=== PATIENT | male | born 1970 | race African-American/Black ===

== ENCOUNTER 2016-12-20 17:09 | Emergency (ER) | payer MEDICARE, MEDICAID ==
[~2016-12-20] VITALS: Ht 177.8 cm; Wt 85.0 kg
[2016-12-20] MEDS ORDERED: KETOROLAC 60MG/2ML VIAL IM ONE (19:45)
[2016-12-21] VITALS: BP 147/83
== END 2016-12-21 00:25 | disposition home or self-care (01) ==
LOC: ER 17:38
DX: M79.671 Pain in right foot (principal)
CPT/HCPCS: 73620; 96372; 99284; J1885

== ENCOUNTER 2018-01-10 14:48 | Inpatient (IN) | payer OTHER, MEDICARE ==
[~2018-01-10] VITALS: Ht 182.9 cm; Wt 86.2 kg
[2018-01-10] MEDS ORDERED: VANCOMYCIN 1 G PREMIX 200 ML IV ONE (15:15)
[2018-01-10] MEDS ORDERED: PIPERACILLIN/TAZ 3.375G PREMIX 50 ML IV ONE (15:15)
[2018-01-10 16:13] LABS: BASOPHILS % 0.5 % (0.0-2.0); EOSINOPHILS % 0.6 % (0.0-5.0); HEMOGLOBIN. 10.4 g/dL (14.0-18.0); LYMPHOCYTES % 9.4 % (20.0-50.0); MEAN CORPUSCULAR HEMOGLOBIN 29.5 pg (28.0-32.0); MEAN CORPUSCULAR VOLUME 87.6 fL (80.0-94.0); MEAN PLATELET VOLUME 9.5 fl (7.4-10.4); MONOCYTES % 10.8 % (2.0-8.0); NEUTROPHILS % 78.7 % (40.0-76.0); PLATELET 433 x1000/uL (130-400); RED BLOOD CELL COUNT 3.53 mill/uL (4.7-6.1); RED CELL DISTRIBUTION WIDTH 12.5 % (11.6-14.6)
[2018-01-10] MEDS ORDERED: HYDROCODONE/ACETAMINOPHEN 5/325MG TABLET PO ONE (16:15)
[2018-01-10 16:19] LABS: CHLORIDE 110 mEq/L (98-107)
[2018-01-10] MEDS ORDERED: DOCUSATE SODIUM 100MG CAPSULE PO PRN (17:00)
[2018-01-10] MEDS ORDERED: LORAZEPAM 0.5MG TABLET PO PRN (17:00)
[2018-01-10] MEDS ORDERED: IPRATROPIUM/ALBUTEROL 0.5-3(2.5)MG/3ML NEB INH PRN (17:00)
[2018-01-10] MEDS ORDERED: MAGNESIUM/ALUMINUM HYDROXIDE/SIMETHICONE 30ML UDC PO PRN (17:00)
[2018-01-10] MEDS ORDERED: NITROGLYCERIN 0.4MG TABLET SL SL PRN (17:00)
[2018-01-10] MEDS ORDERED: GUAIFENESIN 200MG/10ML SUGAR FREE UDC PO PRN (17:00)
[2018-01-10] MEDS ORDERED: ACETAMINOPHEN 325MG TABLET PO PRN (17:00)
[2018-01-10] MEDS ORDERED: POTASSIUM CHLORIDE 20MEQ TABLET SR PO NR (18:22)
[2018-01-10] MEDS ORDERED: NA PHOS,M-B/NA PHOS,DI-BA ENEMA 118ML PR PRN (21:00)
[2018-01-10] MEDS: KETOROLAC 15MG/ML VIAL IV PRN (21:14)
[2018-01-10] MEDS ORDERED: ONDANSETRON HCL 4MG/2ML INJ IV PRN (22:50)
[2018-01-10] MEDS ORDERED: DEXTROSE 50% WATER 50ML SYRINGE IV PRN (23:00)
[2018-01-11] VITALS: BP 167/98
[2018-01-11 01:30] VITALS: BP 147/83
[2018-01-11] MEDS ORDERED: VANCOMYCIN 1 G PREMIX 200 ML IV SCH ×2 (02:00→12:00)
[2018-01-11 04:00] VITALS: BP 154/88
[2018-01-11] MEDS: PIPERACILLIN/TAZ 3.375G PREMIX 50 ML IV SCH ×3 (04:07→18:16)
[2018-01-11] MEDS: BLOOD SUGAR DIAGNOSTIC STRIP TEST SCH ×4 (06:34→21:00)
[2018-01-11] MEDS: INSULIN LISPRO 100 UNITS/ML SUBCUT SCH ×4 (07:50→21:00)
[2018-01-11 08:00] VITALS: BP 159/98
[2018-01-11] MEDS: ENOXAPARIN 40MG/0.4ML SYR SUBCUT SCH (09:19)
[2018-01-11] MEDS: ZINC SULFATE 220 MG ( 50 ) CAPSULE PO SCH (09:20)
[2018-01-11] MEDS: FAMOTIDINE 20MG TABLET PO SCH ×2 (09:20→20:54)
[2018-01-11] MEDS: ASCORBIC ACID 500 MG TABLET PO SCH ×2 (09:20→20:54)
[2018-01-11] MEDS ORDERED: LIDOCAINE HCL 1% 10 MG/ML 10ML VIAL IJ NR (12:00)
[2018-01-11 14:07] LABS: INR 1.1; PARTIAL THROMBOPLASTIN TIME 33.8 sec (23.4-31.0); PROTHROMBIN TIME 11.4 sec (9.1-11.1)
[2018-01-11 16:00] VITALS: BP 185/103
[2018-01-11] MEDS ORDERED: TETANUS, DIPHTHERIA, PERTUSSIS VAC/PF 0.5ML (>7YR OLD) IM ONE (16:30)
[2018-01-11 16:47] LABS: *BARBITURATES SCREEN URINE NEGATIVE (NEGATIVE); *BENZODIAZEPINES SCREEN URINE NEGATIVE (NEGATIVE); *COCAINE SCREEN URINE PRESUMTIVE POSITIVE (NEGATIVE); METHADONE URINE SCREEN NEGATIVE (NEGATIVE); OPIATES URINE SCREEN NEGATIVE (NEGATIVE)
[2018-01-11 16:48] LABS: *AMPHETAMINES SCREEN URINE NEGATIVE (NEGATIVE); CANNABINOID URINE SCREEN NEGATIVE (NEGATIVE); PHENCYCLIDINE URINE SCREEN NEGATIVE (NEGATIVE)
[2018-01-11 20:00] VITALS: BP 159/88
[2018-01-11] MEDS: KETOROLAC 15MG/ML VIAL IV PRN (20:57)
[2018-01-11] MEDS: VANCOMYCIN 1 G PREMIX 200 ML IV SCH (20:57)
[2018-01-12] VITALS: BP 158/81
[2018-01-12] MEDS: PIPERACILLIN/TAZ 3.375G PREMIX 50 ML IV SCH ×5 (00:51→23:22)
[2018-01-12 04:00] VITALS: BP 156/88
[2018-01-12] MEDS: VANCOMYCIN 1 G PREMIX 200 ML IV SCH ×3 (05:09→20:14)
[2018-01-12] MEDS: KETOROLAC 15MG/ML VIAL IV PRN (06:18)
[2018-01-12] MEDS: BLOOD SUGAR DIAGNOSTIC STRIP TEST SCH ×4 (06:24→20:19)
[2018-01-12 07:14] LABS: CHLORIDE 105 mEq/L (98-107)
[2018-01-12 07:44] LABS: BASOPHILS % 0.8 % (0.0-2.0); EOSINOPHILS % 1.7 % (0.0-5.0); HEMATOCRIT. 33.9 % (42.0-52.0); HEMOGLOBIN. 11.4 g/dL (14.0-18.0); MEAN CORPUSCULAR HEMOGLOBIN 29.7 pg (28.0-32.0); MEAN CORPUSCULAR VOLUME 88.4 fL (80.0-94.0); MEAN PLATELET VOLUME 9.8 fl (7.4-10.4); MONOCYTES % 11.1 % (2.0-8.0); NEUTROPHILS % 71.4 % (40.0-76.0); PLATELET 459 x1000/uL (130-400); RED BLOOD CELL COUNT 3.83 mill/uL (4.7-6.1); RED CELL DISTRIBUTION WIDTH 12.8 % (11.6-14.6)
[2018-01-12 08:00] VITALS: BP 176/91
[2018-01-12] MEDS: ASCORBIC ACID 500 MG TABLET PO SCH ×2 (09:22→20:14)
[2018-01-12] MEDS: ENOXAPARIN 40MG/0.4ML SYR SUBCUT SCH (09:22)
[2018-01-12] MEDS: FAMOTIDINE 20MG TABLET PO SCH ×2 (09:22→20:14)
[2018-01-12] MEDS: ZINC SULFATE 220 MG ( 50 ) CAPSULE PO SCH (09:23)
[2018-01-12] MEDS: CLONIDINE 0.1MG TABLET PO PRN (09:33)
[2018-01-12 12:00] VITALS: BP 138/79
[2018-01-12] MEDS: INSULIN LISPRO 100 UNITS/ML SUBCUT SCH ×4 (12:50→20:19)
[2018-01-12 16:00] VITALS: BP 144/86
[2018-01-12 20:00] VITALS: BP 149/87
[2018-01-12] MEDS: ZOLPIDEM TARTRATE 5MG TABLET PO PRN (23:22)
[2018-01-13] VITALS: BP 150/85
[2018-01-13 04:00] VITALS: BP 150/87
[2018-01-13] MEDS: VANCOMYCIN 1 G PREMIX 200 ML IV SCH ×3 (04:40→21:43)
[2018-01-13] MEDS: PIPERACILLIN/TAZ 3.375G PREMIX 50 ML IV SCH ×3 (06:12→17:47)
[2018-01-13] MEDS: BLOOD SUGAR DIAGNOSTIC STRIP TEST SCH ×4 (06:20→21:00)
[2018-01-13] MEDS: INSULIN LISPRO 100 UNITS/ML SUBCUT SCH ×4 (07:50→21:00)
[2018-01-13] MEDS: ASCORBIC ACID 500 MG TABLET PO SCH ×2 (08:11→22:38)
[2018-01-13] MEDS: ZINC SULFATE 220 MG ( 50 ) CAPSULE PO SCH (08:11)
[2018-01-13] MEDS: FAMOTIDINE 20MG TABLET PO SCH ×2 (08:11→21:43)
[2018-01-13] MEDS: ENOXAPARIN 40MG/0.4ML SYR SUBCUT SCH (08:12)
[2018-01-13 08:57] VITALS: BP 140/85
[2018-01-13 12:00] VITALS: BP 130/77
[2018-01-13 16:00] VITALS: BP 154/95
[2018-01-13 20:00] VITALS: BP 134/85
[2018-01-13] MEDS: TRAMADOL 50MG TABLET PO PRN (21:45)
[2018-01-13] MEDS: ZOLPIDEM TARTRATE 5MG TABLET PO PRN (22:38)
[2018-01-14] VITALS: BP 169/89
[2018-01-14] MEDS: PIPERACILLIN/TAZ 3.375G PREMIX 50 ML IV SCH ×3 (00:28→11:40)
[2018-01-14 04:00] VITALS: BP 130/87
[2018-01-14] MEDS: VANCOMYCIN 1 G PREMIX 200 ML IV SCH ×2 (05:19→13:07)
[2018-01-14] MEDS ORDERED: BUPIVACAINE HCL/PF 0.5% (5MG/ML) 10ML ONE (06:42)
[2018-01-14] MEDS ORDERED: BACITRACIN ZINC 15GM TUBE TOP ONE (06:42)
[2018-01-14] MEDS ORDERED: LIDOCAINE HCL 1% 10 MG/ML 10ML VIAL ONE (06:42)
[2018-01-14] MEDS ORDERED: BACITRACIN 50,000 UNITS/VIAL ONE (06:43)
[2018-01-14] MEDS ORDERED: NORMAL SALINE 0.9% 10 ML SYR ONE (06:43)
[2018-01-14] MEDS ORDERED: LIDOCAINE HCL 1% 20ML VIAL (Pyxis) INJ ONE (07:18)
[2018-01-14] MEDS ORDERED: FENTANYL CITRATE/PF 50MCG/ML 2ML VIAL ONE (07:18)
[2018-01-14] MEDS ORDERED: SUCCINYLCHOLINE CHLORIDE 200MG/10ML VIAL IV ONE (07:18)
[2018-01-14] MEDS ORDERED: PROPOFOL 200MG/20ML VIAL IV ONE (07:18)
[2018-01-14] MEDS ORDERED: METOCLOPRAMIDE HCL 10MG/2ML VIAL ONE (07:18)
[2018-01-14] MEDS ORDERED: MIDAZOLAM HCL 2 MG/2 ML VIAL ONE (07:18)
[2018-01-14] MEDS ORDERED: GLYCOPYRROLATE 0.2 MG/ML 2ML VIAL ONE (07:18)
[2018-01-14] MEDS ORDERED: ONDANSETRON HCL 4MG/2ML INJ ONE (07:18)
[2018-01-14] MEDS: BLOOD SUGAR DIAGNOSTIC STRIP TEST SCH ×4 (07:20→21:00)
[2018-01-14] MEDS ORDERED: LIDOCAINE HCL/EPINEPHRINE 1%-EPI 1:100,000 20 ML VIAL ONE (07:20)
[2018-01-14] MEDS ORDERED: SODIUM CHLORIDE 0.9% 1,000 ML IV ONE (07:40)
[2018-01-14] MEDS ORDERED: MORPHINE SULFATE 2 MG/ML CPJ (NOT FOR IM USE) IV PRN (07:45)
[2018-01-14] MEDS ORDERED: ONDANSETRON HCL 4MG/2ML INJ IV PRN (07:45)
[2018-01-14] MEDS ORDERED: MEPERIDINE HCL/PF 25MG/ML CPJ IV PRN (07:45)
[2018-01-14] MEDS: INSULIN LISPRO 100 UNITS/ML SUBCUT SCH ×4 (07:50→21:00)
[2018-01-14 08:00] VITALS: BP 139/84
[2018-01-14] MEDS: ZINC SULFATE 220 MG ( 50 ) CAPSULE PO SCH ×2 (08:33→15:58)
[2018-01-14] MEDS: FAMOTIDINE 20MG TABLET PO SCH ×2 (08:33→20:57)
[2018-01-14] MEDS: ASCORBIC ACID 500 MG TABLET PO SCH ×2 (08:33→20:57)
[2018-01-14] MEDS: HYDROMORPHONE HCL/PF 2MG/ML CPJ IV PRN ×2 (08:33→08:49)
[2018-01-14] MEDS: ENOXAPARIN 40MG/0.4ML SYR SUBCUT SCH (08:33)
[2018-01-14 12:00] VITALS: BP 149/81
[2018-01-14] MEDS: METRONIDAZOLE 500MG TABLET PO SCH (14:42)
[2018-01-14] MEDS: CEFTRIAXONE 2 G PREMIX 50 ML IV SCH (15:58)
[2018-01-14] MEDS: KETOROLAC 15MG/ML VIAL IV PRN (15:59)
[2018-01-14 16:00] VITALS: BP 147/81
[2018-01-14 20:00] VITALS: BP 141/83
[2018-01-14] MEDS: ZOLPIDEM TARTRATE 5MG TABLET PO PRN (20:57)
[2018-01-14] MEDS: TRAMADOL 50MG TABLET PO PRN (20:58)
[2018-01-15] VITALS: BP 150/78
[2018-01-15 04:00] VITALS: BP 137/85
[2018-01-15] MEDS: METRONIDAZOLE 500MG TABLET PO SCH ×2 (06:51→18:10)
[2018-01-15] MEDS: BLOOD SUGAR DIAGNOSTIC STRIP TEST SCH ×4 (07:20→21:00)
[2018-01-15] MEDS: INSULIN LISPRO 100 UNITS/ML SUBCUT SCH ×4 (07:50→21:00)
[2018-01-15 08:00] VITALS: BP 145/80
[2018-01-15] MEDS: ENOXAPARIN 40MG/0.4ML SYR SUBCUT SCH (08:53)
[2018-01-15] MEDS: ZINC SULFATE 220 MG ( 50 ) CAPSULE PO SCH ×2 (08:53→09:00)
[2018-01-15] MEDS: ASCORBIC ACID 500 MG TABLET PO SCH ×2 (08:53→21:00)
[2018-01-15] MEDS: FAMOTIDINE 20MG TABLET PO SCH ×2 (08:53→21:00)
[2018-01-15] MEDS: KETOROLAC 15MG/ML VIAL IV PRN (08:54)
[2018-01-15 12:00] VITALS: BP 160/87
[2018-01-15 16:00] VITALS: BP 139/88
[2018-01-15] MEDS: CEFTRIAXONE 2 G PREMIX 50 ML IV SCH (17:11)
[2018-01-15 20:00] VITALS: BP 143/85
[2018-01-15] MEDS: ZOLPIDEM TARTRATE 5MG TABLET PO PRN (21:00)
[2018-01-16] VITALS: BP 134/71
[2018-01-16 04:00] VITALS: BP 138/88
[2018-01-16] MEDS: METRONIDAZOLE 500MG TABLET PO SCH ×2 (05:55→18:05)
[2018-01-16] MEDS: BLOOD SUGAR DIAGNOSTIC STRIP TEST SCH ×3 (07:20→21:00)
[2018-01-16] MEDS: INSULIN LISPRO 100 UNITS/ML SUBCUT SCH ×3 (07:50→21:00)
[2018-01-16 08:00] VITALS: BP 171/98
[2018-01-16] MEDS: ENOXAPARIN 40MG/0.4ML SYR SUBCUT SCH (09:00)
[2018-01-16] MEDS: ZINC SULFATE 220 MG ( 50 ) CAPSULE PO SCH (09:00)
[2018-01-16] MEDS: FAMOTIDINE 20MG TABLET PO SCH ×2 (09:00→21:47)
[2018-01-16] MEDS: ASCORBIC ACID 500 MG TABLET PO SCH ×2 (09:00→21:47)
[2018-01-16] MEDS: KETOROLAC 15MG/ML VIAL IV PRN (11:13)
[2018-01-16] MEDS: CLONIDINE 0.1MG TABLET PO PRN (11:27)
[2018-01-16 12:00] VITALS: BP 164/86
[2018-01-16 16:00] VITALS: BP 138/84
[2018-01-16] MEDS: CEFTRIAXONE 2 G in DEXTROSE 5% WATER 50 ML IV SCH (18:05)
[2018-01-16 20:00] VITALS: BP 153/84
[2018-01-17 00:02] VITALS: BP 146/89
[2018-01-17] MEDS: KETOROLAC 15MG/ML VIAL IV PRN ×2 (02:20→20:04)
[2018-01-17 04:00] VITALS: BP 144/91
[2018-01-17] MEDS: METRONIDAZOLE 500MG TABLET PO SCH ×2 (07:00→17:07)
[2018-01-17] MEDS: BLOOD SUGAR DIAGNOSTIC STRIP TEST SCH ×4 (07:00→20:16)
[2018-01-17] MEDS: INSULIN LISPRO 100 UNITS/ML SUBCUT SCH ×4 (07:50→20:18)
[2018-01-17 08:00] VITALS: BP 143/88
[2018-01-17] MEDS: FAMOTIDINE 20MG TABLET PO SCH ×2 (09:48→20:11)
[2018-01-17] MEDS: ZINC SULFATE 220 MG ( 50 ) CAPSULE PO SCH (09:48)
[2018-01-17] MEDS: ASCORBIC ACID 500 MG TABLET PO SCH ×2 (09:48→20:11)
[2018-01-17] MEDS: ENOXAPARIN 40MG/0.4ML SYR SUBCUT SCH (09:49)
[2018-01-17 12:00] VITALS: BP 152/77
[2018-01-17 16:00] VITALS: BP 160/86
[2018-01-17] MEDS: CEFTRIAXONE 2 G in DEXTROSE 5% WATER 50 ML IV SCH (16:57)
[2018-01-17 20:00] VITALS: BP 143/89
[2018-01-17] MEDS: ZOLPIDEM TARTRATE 5MG TABLET PO PRN (21:15)
[2018-01-18] VITALS: BP 153/87
[2018-01-18 04:00] VITALS: BP 155/80
[2018-01-18] MEDS: KETOROLAC 15MG/ML VIAL IV PRN ×3 (05:24→20:29)
[2018-01-18] MEDS: METRONIDAZOLE 500MG TABLET PO SCH ×2 (05:24→18:16)
[2018-01-18 06:28] LABS: BASOPHILS % 0.8 % (0.0-2.0); EOSINOPHILS % 3.3 % (0.0-5.0); HEMATOCRIT. 34.3 % (42.0-52.0); HEMOGLOBIN. 11.3 g/dL (14.0-18.0); LYMPHOCYTES % 21.2 % (20.0-50.0); MEAN CORPUSCULAR HEMOGLOBIN 28.9 pg (28.0-32.0); MEAN CORPUSCULAR VOLUME 87.8 fL (80.0-94.0); MONOCYTES % 10.6 % (2.0-8.0); NEUTROPHILS % 64.1 % (40.0-76.0); PLATELET 431 x1000/uL (130-400)
[2018-01-18 06:47] LABS: CHLORIDE 106 mEq/L (98-107)
[2018-01-18] MEDS: BLOOD SUGAR DIAGNOSTIC STRIP TEST SCH ×4 (07:37→20:28)
[2018-01-18] MEDS: INSULIN LISPRO 100 UNITS/ML SUBCUT SCH ×4 (07:50→21:00)
[2018-01-18 08:00] VITALS: BP 158/80
[2018-01-18] MEDS: ZINC SULFATE 220 MG ( 50 ) CAPSULE PO SCH (09:34)
[2018-01-18] MEDS: FAMOTIDINE 20MG TABLET PO SCH ×2 (09:34→20:28)
[2018-01-18] MEDS: ASCORBIC ACID 500 MG TABLET PO SCH ×2 (09:34→20:28)
[2018-01-18] MEDS: ENOXAPARIN 40MG/0.4ML SYR SUBCUT SCH (09:35)
[2018-01-18 12:00] VITALS: BP 146/84
[2018-01-18] MEDS: CEFTRIAXONE 2 G in DEXTROSE 5% WATER 50 ML IV SCH (15:12)
[2018-01-18 16:00] VITALS: BP 144/84
[2018-01-18 20:00] VITALS: BP 147/59
[2018-01-19] VITALS: BP 142/81
[2018-01-19] MEDS: ZOLPIDEM TARTRATE 5MG TABLET PO PRN ×2 (01:12→23:22)
[2018-01-19 04:00] VITALS: BP 150/81
[2018-01-19] MEDS: BLOOD SUGAR DIAGNOSTIC STRIP TEST SCH ×4 (07:21→21:07)
[2018-01-19] MEDS: METRONIDAZOLE 500MG TABLET PO SCH ×2 (07:22→18:39)
[2018-01-19] MEDS: INSULIN LISPRO 100 UNITS/ML SUBCUT SCH ×4 (07:41→21:00)
[2018-01-19 08:00] VITALS: BP 140/81
[2018-01-19] MEDS: ZINC SULFATE 220 MG ( 50 ) CAPSULE PO SCH (08:58)
[2018-01-19] MEDS: FAMOTIDINE 20MG TABLET PO SCH ×2 (08:58→21:07)
[2018-01-19] MEDS: ASCORBIC ACID 500 MG TABLET PO SCH ×2 (08:59→21:07)
[2018-01-19] MEDS: KETOROLAC 15MG/ML VIAL IV PRN ×2 (08:59→21:08)
[2018-01-19] MEDS: ENOXAPARIN 40MG/0.4ML SYR SUBCUT SCH (09:00)
[2018-01-19 12:00] VITALS: BP 132/80
[2018-01-19 16:00] VITALS: BP 149/83
[2018-01-19] MEDS: CEFTRIAXONE 2 G in DEXTROSE 5% WATER 50 ML IV SCH (16:52)
[2018-01-19 20:00] VITALS: BP 130/77
[2018-01-20] VITALS: BP 146/88
[2018-01-20 04:00] VITALS: BP 146/96
[2018-01-20] MEDS: BLOOD SUGAR DIAGNOSTIC STRIP TEST SCH ×4 (05:45→21:00)
[2018-01-20] MEDS: METRONIDAZOLE 500MG TABLET PO SCH ×2 (05:45→20:03)
[2018-01-20] MEDS: INSULIN LISPRO 100 UNITS/ML SUBCUT SCH ×4 (05:49→21:00)
[2018-01-20 08:00] VITALS: BP 151/90
[2018-01-20] MEDS: ENOXAPARIN 40MG/0.4ML SYR SUBCUT SCH (09:00)
[2018-01-20] MEDS: ASCORBIC ACID 500 MG TABLET PO SCH ×2 (09:25→23:22)
[2018-01-20] MEDS: ZINC SULFATE 220 MG ( 50 ) CAPSULE PO SCH (09:25)
[2018-01-20] MEDS: FAMOTIDINE 20MG TABLET PO SCH ×2 (09:26→23:23)
[2018-01-20 12:00] VITALS: BP 134/80
[2018-01-20] MEDS: KETOROLAC 15MG/ML VIAL IV PRN ×2 (12:46→20:02)
[2018-01-20 16:00] VITALS: BP 141/78
[2018-01-20] MEDS: CEFTRIAXONE 2 G in DEXTROSE 5% WATER 50 ML IV SCH (17:32)
[2018-01-20 20:00] VITALS: BP 116/72
[2018-01-20] MEDS: ZOLPIDEM TARTRATE 5MG TABLET PO PRN (23:22)
[2018-01-21] VITALS: BP 130/78
[2018-01-21 04:00] VITALS: BP 135/79
[2018-01-21] MEDS: METRONIDAZOLE 500MG TABLET PO SCH (06:29)
[2018-01-21] MEDS: BLOOD SUGAR DIAGNOSTIC STRIP TEST SCH ×4 (06:33→22:00)
[2018-01-21] MEDS: INSULIN LISPRO 100 UNITS/ML SUBCUT SCH ×4 (07:50→22:15)
[2018-01-21 08:00] VITALS: BP 145/73
[2018-01-21] MEDS: FAMOTIDINE 20MG TABLET PO SCH ×2 (09:57→22:36)
[2018-01-21] MEDS: ASCORBIC ACID 500 MG TABLET PO SCH ×2 (09:58→22:36)
[2018-01-21] MEDS: ENOXAPARIN 40MG/0.4ML SYR SUBCUT SCH (09:58)
[2018-01-21] MEDS: ZINC SULFATE 220 MG ( 50 ) CAPSULE PO SCH (09:58)
[2018-01-21] MEDS: KETOROLAC 15MG/ML VIAL IV PRN ×2 (10:01→22:38)
[2018-01-21 12:00] VITALS: BP 153/72
[2018-01-21 16:00] VITALS: BP 145/85
[2018-01-21] MEDS: CEFTRIAXONE 2 G in DEXTROSE 5% WATER 50 ML IV SCH (16:02)
[2018-01-21] MEDS: LORAZEPAM 2MG/ML CPJ IV PRN (17:40)
[2018-01-21 20:00] VITALS: BP 157/92
[2018-01-21] MEDS: ZOLPIDEM TARTRATE 5MG TABLET PO PRN (22:45)
[2018-01-22] VITALS: BP 146/90
[2018-01-22] MEDS: LORAZEPAM 2MG/ML CPJ IV PRN (02:52)
[2018-01-22 04:00] VITALS: BP 153/102
[2018-01-22] MEDS: KETOROLAC 15MG/ML VIAL IV PRN (06:53)
[2018-01-22] MEDS: BLOOD SUGAR DIAGNOSTIC STRIP TEST SCH ×3 (07:20→17:02)
[2018-01-22] MEDS: INSULIN LISPRO 100 UNITS/ML SUBCUT SCH ×3 (07:34→17:02)
[2018-01-22 08:00] VITALS: BP 144/86
[2018-01-22] MEDS: ZINC SULFATE 220 MG ( 50 ) CAPSULE PO SCH (08:30)
[2018-01-22] MEDS: FAMOTIDINE 20MG TABLET PO SCH (08:30)
[2018-01-22] MEDS: ASCORBIC ACID 500 MG TABLET PO SCH (08:31)
[2018-01-22] MEDS: ENOXAPARIN 40MG/0.4ML SYR SUBCUT SCH (08:31)
[2018-01-22 12:00] VITALS: BP 139/83
[2018-01-22 16:00] VITALS: BP 150/88
[2018-01-22 18:55] VITALS: BP 143/72
== END 2018-01-22 19:36 | disposition short-term general hospital (02) | DRG 622 ==
LOC: ER 15:12 → 6EST 16:48 → SUPCPDRO 17:05 → ENRESERV 17:27
PROVIDERS: ADMIT Internal Medicine; ATTEND Internal Medicine
PROC: 0JBQ0ZZ Excision of Right Foot Subcutaneous Tissue and Fascia, Open Approach (ICD-10-PCS; principal; 2018-01-11)
PROC: 0Y9M0ZZ Drainage of Right Foot, Open Approach (ICD-10-PCS; 2018-01-11)
PROC: 0QBL0ZZ Excision of Right Tarsal, Open Approach (ICD-10-PCS; 2018-01-14)
PROC: 02HV33Z Insertion of Infusion Device into Superior Vena Cava, Percutaneous Approach (ICD-10-PCS; 2018-01-19)
PROC: B5181ZA Fluoroscopy of Superior Vena Cava using Low Osmolar Contrast, Guidance (ICD-10-PCS; 2018-01-19)
PROC: B548ZZA Ultrasonography of Superior Vena Cava, Guidance (ICD-10-PCS; 2018-01-19)
DX: E11.69 Type 2 diabetes mellitus with other specified complication (principal); E43 Unspecified severe protein-calorie malnutrition; L03.115 Cellulitis of right lower limb; M86.8X7 Other osteomyelitis, ankle and foot; E11.621 Type 2 diabetes mellitus with foot ulcer; E87.6 Hypokalemia; D64.9 Anemia, unspecified; E87.8 Other disorders of electrolyte and fluid balance, not elsewhere classified; E11.42 Type 2 diabetes mellitus with diabetic polyneuropathy; F14.10 Cocaine abuse, uncomplicated; F17.210 Nicotine dependence, cigarettes, uncomplicated; L97.519 Non-pressure chronic ulcer of other part of right foot with unspecified severity; R29.6 Repeated falls; Z59.0 Homelessness; Z79.4 Long term (current) use of insulin; Z83.3 Family history of diabetes mellitus; Z91.81 History of falling
CPT/HCPCS: 36415; 36569; 73630; 73721; 76937; 77001; 80048; 80053; 80061; 80202; 80305; 82962; 83036; 83605; 85025; 85610; 85651; 85730; 86140; 87040; 87070; 87075; 87077; 87205; 93970; 96365; 96366; 96368; 96375; 99285; A4216; A4565; C1725; C1769; J0330; J0696; J1170; J1650; J1815; J1885; J2060; J2250; J2405; J2543; J2704; J2765; J3010; J3370; J3490; J7030; J7040; J7060

== ENCOUNTER 2018-03-03 15:16 | Emergency (ER) | payer OTHER, MEDICARE ==
[~2018-03-03] VITALS: Ht 177.8 cm; Wt 90.0 kg
[2018-03-03] MEDS ORDERED: HYDROCODONE/ACETAMINOPHEN 5/325MG TABLET PO ONE (15:45)
[2018-03-03] MEDS ORDERED: VANCOMYCIN 1 G PREMIX 200 ML IV ONE (15:45)
[2018-03-03] MEDS ORDERED: PIPERACILLIN/TAZ 3.375G PREMIX 50 ML IV ONE (15:45)
[2018-03-03] MEDS ORDERED: SODIUM CHLORIDE 0.9% 1000ML BAG (SEPSIS BOLUS) IV ONE (15:45)
[2018-03-03 16:29] LABS: EOSINOPHILS % 3.1 % (0.0-5.0); HEMATOCRIT. 35.2 % (42.0-52.0); HEMOGLOBIN. 12.1 g/dL (14.0-18.0); LYMPHOCYTES % 15.9 % (20.0-50.0); MEAN CORPUSCULAR HEMOGLOBIN 29.6 pg (28.0-32.0); MEAN CORPUSCULAR VOLUME 86.3 fL (80.0-94.0); MEAN PLATELET VOLUME 9.9 fl (7.4-10.4); MONOCYTES % 8.2 % (2.0-8.0); NEUTROPHILS % 71.8 % (40.0-76.0); PLATELET 251 x1000/uL (130-400); RED BLOOD CELL COUNT 4.07 mill/uL (4.7-6.1); RED CELL DISTRIBUTION WIDTH 13.3 % (11.6-14.6)
[2018-03-03 16:34] LABS: INR 1.1; PARTIAL THROMBOPLASTIN TIME 30.1 sec (23.4-31.0); PROTHROMBIN TIME 11.2 sec (9.1-11.1)
[2018-03-03 16:35] LABS: CHLORIDE 109 mEq/L (98-107); ETHANOL BLOOD 126 mg/dL
[2018-03-03] MEDS ORDERED: FOLIC ACID 1 MG, THIAMINE HCL 100 MG, MVI, ADULT NO.1 10 ML in DEXTROSE 5% WATER 1,000 ML IV ONE ×4 (17:45)
[2018-03-03 18:23] LABS: CLARITY URINE CLEAR (CLEAR); COLOR URINE YELLOW (YELLOW); KETONES URINE TRACE (NEGATIVE); LEUKOCYTE ESTERASE URINE NEGATIVE (NEGATIVE); NITRITE URINE NEGATIVE (NEGATIVE); OCCULT BLOOD URINE NEGATIVE (NEGATIVE); PROTEIN URINE NEGATIVE (NEGATIVE); SPECIFIC GRAVITY URINE 1.012 (1.005-1.030); UROBILINOGEN URINE 0.2 E.U./dL (0.2-1.0)
[2018-03-03 18:39] LABS: *AMPHETAMINES SCREEN URINE NEGATIVE (NEGATIVE); *BARBITURATES SCREEN URINE NEGATIVE (NEGATIVE); *BENZODIAZEPINES SCREEN URINE NEGATIVE (NEGATIVE); *COCAINE SCREEN URINE PRESUMTIVE POSITIVE (NEGATIVE); CANNABINOID URINE SCREEN NEGATIVE (NEGATIVE); METHADONE URINE SCREEN NEGATIVE (NEGATIVE); OPIATES URINE SCREEN NEGATIVE (NEGATIVE); PHENCYCLIDINE URINE SCREEN NEGATIVE (NEGATIVE)
[2018-03-03] MEDS ORDERED: TRAMADOL 50MG TABLET PO ONE (20:00)
[2018-03-03] MEDS ORDERED: KETOROLAC 30MG/ML VIAL IV ONE (20:00)
[2018-03-03 20:08] VITALS: BP 152/83
== END 2018-03-03 20:24 | disposition short-term general hospital (02) ==
LOC: ER 15:16 → CANBEDREQ 20:29
DX: L03.115 Cellulitis of right lower limb (principal); S92.314A Nondisplaced fracture of first metatarsal bone, right foot, initial encounter for closed fracture; X58.XXXA Exposure to other specified factors, initial encounter; Y93.9 Activity, unspecified; Y92.9 Unspecified place or not applicable; R94.31 Abnormal electrocardiogram [ECG] [EKG]; F10.129 Alcohol abuse with intoxication, unspecified; F14.10 Cocaine abuse, uncomplicated; Y90.6 Blood alcohol level of 120-199 mg/100 ml; E16.2 Hypoglycemia, unspecified; I10 Essential (primary) hypertension
CPT/HCPCS: 36415; 71045; 73630; 80053; 80305; 81003; 82962; 83605; 84145; 85025; 85610; 85651; 85730; 86140; 87040; 87086; 93005; 96365; 96366; 96368; 96375; 99285; G0482; J1885; J2543; J3370; J3411; J3490; J7030; J7070

== ENCOUNTER 2019-12-20 18:25 | Emergency (ER) | payer OTHER, MEDICARE ==
[~2019-12-20] VITALS: Ht 177.8 cm; Wt 82.0 kg
[2019-12-20 19:28] LABS: HEMATOCRIT 31.7 % (42.0-52.0); HEMOGLOBIN 10.3 g/dL (14.0-18.0); MEAN CORPUSCULAR HEMOGLOBIN 25.7 pg (28.0-32.0); MEAN CORPUSCULAR VOLUME 79.4 fL (80.0-94.0); PLATELET 297 x1000/uL (130-400); RED CELL DISTRIBUTION WIDTH 17.6 % (11.6-14.6)
[2019-12-20 19:33] LABS: CHLORIDE 115 mEq/L (98-107)
[2019-12-20 21:06] VITALS: BP 139/70
== END 2019-12-20 21:58 | disposition home or self-care (01) ==
LOC: ER 18:25
DX: L84 Corns and callosities (principal); E11.621 Type 2 diabetes mellitus with foot ulcer; L97.519 Non-pressure chronic ulcer of other part of right foot with unspecified severity; I10 Essential (primary) hypertension; J45.909 Unspecified asthma, uncomplicated; F19.10 Other psychoactive substance abuse, uncomplicated
CPT/HCPCS: 36415; 80048; 85027; 99283

== ENCOUNTER 2019-12-26 07:35 | Emergency (ER) | payer OTHER, MEDICARE ==
[~2019-12-26] VITALS: Ht 182.9 cm; Wt 93.0 kg
[2019-12-26 09:29] LABS: BASOPHILS % 0.7 % (0.0-2.0); EOSINOPHILS % 2.6 % (0.0-5.0); HEMATOCRIT. 33.6 % (42.0-52.0); LYMPHOCYTES % 11.2 % (20.0-50.0); MEAN CORPUSCULAR HEMOGLOBIN 26.1 pg (28.0-32.0); MEAN CORPUSCULAR VOLUME 79.9 fL (80.0-94.0); MONOCYTES % 9.3 % (2.0-8.0); NEUTROPHILS % 76.2 % (40.0-76.0); PLATELET 220 x1000/uL (130-400); RED CELL DISTRIBUTION WIDTH 18.5 % (11.6-14.6)
[2019-12-26 09:36] LABS: CHLORIDE 109 mEq/L (98-107)
[2019-12-26 10:07] LABS: INR 1.1; PROTHROMBIN TIME 11.4 sec (9.6-11.0)
[2019-12-26] MEDS ORDERED: PIPERACILLIN/TAZ 3.375G PREMIX 50 ML IV ONE (10:30)
[2019-12-26] MEDS ORDERED: AMLODIPINE 5MG TABLET PO ONE (10:45)
[2019-12-26] MEDS ORDERED: ONDANSETRON HCL 4MG/2ML INJ IV ONE (11:30)
[2019-12-26 12:11] VITALS: BP 173/105
== END 2019-12-26 12:36 | disposition short-term general hospital (02) ==
LOC: ER 07:35
DX: E11.621 Type 2 diabetes mellitus with foot ulcer (principal); L08.89 Other specified local infections of the skin and subcutaneous tissue; L97.518 Non-pressure chronic ulcer of other part of right foot with other specified severity; S09.8XXA Other specified injuries of head, initial encounter; M25.512 Pain in left shoulder; H57.12 Ocular pain, left eye; I10 Essential (primary) hypertension; Y04.2XXA Assault by strike against or bumped into by another person, initial encounter; Y93.89 Activity, other specified; Y92.89 Other specified places as the place of occurrence of the external cause; Z79.4 Long term (current) use of insulin; Z79.84 Long term (current) use of oral hypoglycemic drugs; J45.909 Unspecified asthma, uncomplicated
CPT/HCPCS: 36415; 70450; 70486; 73030; 73620; 80053; 85025; 85610; 87040; 93005; 96365; 96375; 99285; J2405; J2543

== ENCOUNTER 2020-12-28 09:56 | Inpatient (IN) | payer MEDICARE, MEDICAID ==
[~2020-12-28] VITALS: Ht 172.7 cm; Wt 81.6 kg
[~2020-12-28 09:56] MED LIST: AMLO5TAB88 PO; ASPI-1160 PO; CEPH500C2 MT; HYDR-4135 PO; IBUP-2029 MT; LIP40 PO; LISI20TA31 PO; SULF1TAB48 MT
[2020-12-28] MEDS ORDERED: MORPHINE SULFATE 4 MG/ML CPJ (NOT FOR IM USE) IV ONE (10:45)
[2020-12-28 11:53] LABS: BASOPHILS % 0.8 % (0.0-2.0); EOSINOPHILS % 1.5 % (0.0-5.0); HEMATOCRIT. 43.4 % (42.0-52.0); HEMOGLOBIN. 14.4 g/dL (14.0-18.0); LYMPHOCYTES % 13.9 % (20.0-50.0); MEAN CORPUSCULAR HEMOGLOBIN 28.8 pg (28.0-32.0); MEAN PLATELET VOLUME 9.8 fl (7.4-10.4); MONOCYTES % 10.5 % (2.0-8.0); NEUTROPHILS % 73.3 % (40.0-76.0); PLATELET 221 x1000/uL (130-400); RED BLOOD CELL COUNT 4.99 mill/uL (4.7-6.1); RED CELL DISTRIBUTION WIDTH 14.6 % (11.6-14.6)
[2020-12-28 11:59] LABS: CHLORIDE 107 mEq/L (98-107)
[2020-12-28 12:16] LABS: INR 1.1; PROTHROMBIN TIME 11.3 sec (9.6-11.0)
[2020-12-28] MEDS ORDERED: VANCOMYCIN 1 G PREMIX 200 ML IV ONE (12:30)
[2020-12-28] MEDS ORDERED: METOPROLOL TARTRATE 5MG/5ML VIAL IV ONE (13:04)
[2020-12-28 16:00] VITALS: BP 166/75
[2020-12-28 16:07] VITALS: BP 166/75
[2020-12-28] MEDS ORDERED: ACETAMINOPHEN 325MG TABLET PO PRN ×2 (17:00)
[2020-12-28] MEDS ORDERED: CLONIDINE 0.1MG TABLET PO PRN (17:00)
[2020-12-28] MEDS ORDERED: ONDANSETRON HCL 4MG/2ML INJ IV PRN (17:00)
[2020-12-28] MEDS ORDERED: IPRATROPIUM/ALBUTEROL 0.5-3(2.5)MG/3ML NEB HHN PRN (17:00)
[2020-12-28] MEDS ORDERED: LORAZEPAM 0.5MG TABLET PO PRN (17:00)
[2020-12-28] MEDS ORDERED: DOCUSATE SODIUM 100MG CAPSULE PO PRN (17:00)
[2020-12-28] MEDS ORDERED: DEXTROSE 50% WATER 50ML SYRINGE IV PRN (17:45)
[2020-12-28] MEDS: INSULIN LISPRO 100 UNITS/ML SUBCUT SCH ×2 (17:50→21:00)
[2020-12-28] MEDS: ASPIRIN 81MG TABLET PO SCH (17:51)
[2020-12-28] MEDS: LISINOPRIL 20MG TABLET PO SCH (17:51)
[2020-12-28] MEDS: AMLODIPINE 5MG TABLET PO SCH (17:51)
[2020-12-28] MEDS: ENOXAPARIN 40MG/0.4ML SYR SUBCUT SCH (18:40)
[2020-12-28 19:48] VITALS: BP 162/86
[2020-12-28] MEDS: CEFTRIAXONE 2 G in DEXTROSE 5% WATER 50 ML IV SCH (19:58)
[2020-12-28] MEDS: HYDRALAZINE HCL 25MG TABLET PO SCH (21:45)
[2020-12-28] MEDS: BLOOD SUGAR DIAGNOSTIC STRIP TEST SCH (21:45)
[2020-12-29] VITALS: BP 139/79
[2020-12-29 04:00] VITALS: BP 167/97
[2020-12-29] MEDS: HYDRALAZINE HCL 25MG TABLET PO SCH ×3 (05:48→21:27)
[2020-12-29] MEDS: INSULIN LISPRO 100 UNITS/ML SUBCUT SCH ×4 (06:19→21:28)
[2020-12-29] MEDS: BLOOD SUGAR DIAGNOSTIC STRIP TEST SCH ×4 (06:20→20:01)
[2020-12-29 06:54] LABS: BASOPHILS % 0.9 % (0.0-2.0); EOSINOPHILS % 2.8 % (0.0-5.0); HEMATOCRIT. 44.9 % (42.0-52.0); HEMOGLOBIN. 14.5 g/dL (14.0-18.0); LYMPHOCYTES % 23.6 % (20.0-50.0); MEAN CORPUSCULAR HEMOGLOBIN 28.8 pg (28.0-32.0); MEAN CORPUSCULAR VOLUME 89.3 fL (80.0-94.0); MEAN PLATELET VOLUME 10.8 fl (7.4-10.4); MONOCYTES % 11.2 % (2.0-8.0); NEUTROPHILS % 61.5 % (40.0-76.0); PLATELET 202 x1000/uL (130-400); RED BLOOD CELL COUNT 5.03 mill/uL (4.7-6.1); RED CELL DISTRIBUTION WIDTH 14.7 % (11.6-14.6)
[2020-12-29 07:06] LABS: CHLORIDE 107 mEq/L (98-107)
[2020-12-29 08:00] VITALS: BP 150/80
[2020-12-29] MEDS: ASPIRIN 81MG TABLET PO SCH (08:20)
[2020-12-29] MEDS: AMLODIPINE 5MG TABLET PO SCH (08:20)
[2020-12-29] MEDS: LISINOPRIL 20MG TABLET PO SCH (08:20)
[2020-12-29 10:12] LABS: *AMPHETAMINES SCREEN URINE NEGATIVE (NEGATIVE); *BARBITURATES SCREEN URINE NEGATIVE (NEGATIVE); *BENZODIAZEPINES SCREEN URINE NEGATIVE (NEGATIVE); *COCAINE SCREEN URINE PRESUMTIVE POSITIVE (NEGATIVE); METHADONE URINE SCREEN NEGATIVE (NEGATIVE); OPIATES URINE SCREEN PRESUMTIVE POSITIVE (NEGATIVE)
[2020-12-29 10:13] LABS: CANNABINOID URINE SCREEN NEGATIVE (NEGATIVE); PHENCYCLIDINE URINE SCREEN NEGATIVE (NEGATIVE)
[2020-12-29] MEDS ORDERED: NALOXONE HCL 0.4MG/ML VIAL IV PRN (15:15)
[2020-12-29 16:00] VITALS: BP 149/90
[2020-12-29] MEDS: ENOXAPARIN 40MG/0.4ML SYR SUBCUT SCH (17:26)
[2020-12-29 20:00] VITALS: BP 146/83
[2020-12-29] MEDS: CEFTRIAXONE 2 G in DEXTROSE 5% WATER 50 ML IV SCH (20:01)
[2020-12-30 00:01] VITALS: BP 159/82
[2020-12-30 04:04] VITALS: BP 149/94
[2020-12-30 05:01] LABS: BASOPHILS % 0.6 % (0.0-2.0); EOSINOPHILS % 1.5 % (0.0-5.0); HEMOGLOBIN. 14.4 g/dL (14.0-18.0); LYMPHOCYTES % 24.5 % (20.0-50.0); MEAN CORPUSCULAR HEMOGLOBIN 29.2 pg (28.0-32.0); MEAN CORPUSCULAR VOLUME 87.3 fL (80.0-94.0); MEAN PLATELET VOLUME 10.5 fl (7.4-10.4); MONOCYTES % 11.1 % (2.0-8.0); NEUTROPHILS % 62.3 % (40.0-76.0); PLATELET 206 x1000/uL (130-400); RED BLOOD CELL COUNT 4.92 mill/uL (4.7-6.1); RED CELL DISTRIBUTION WIDTH 14.8 % (11.6-14.6)
[2020-12-30 05:09] LABS: CHLORIDE 109 mEq/L (98-107)
[2020-12-30] MEDS: HYDRALAZINE HCL 25MG TABLET PO SCH ×3 (06:06→21:15)
[2020-12-30] MEDS: INSULIN LISPRO 100 UNITS/ML SUBCUT SCH ×3 (06:22→21:00)
[2020-12-30] MEDS: BLOOD SUGAR DIAGNOSTIC STRIP TEST SCH ×3 (06:22→21:16)
[2020-12-30 08:00] VITALS: BP 155/97
[2020-12-30] MEDS: ASPIRIN 81MG TABLET PO SCH (10:12)
[2020-12-30] MEDS: AMLODIPINE 5MG TABLET PO SCH (10:12)
[2020-12-30] MEDS: LISINOPRIL 20MG TABLET PO SCH (10:13)
[2020-12-30 12:00] VITALS: BP 152/96
[2020-12-30 16:00] VITALS: BP 150/94
[2020-12-30 20:00] VITALS: BP 135/88
[2020-12-30] MEDS: ENOXAPARIN 40MG/0.4ML SYR SUBCUT SCH (21:15)
[2020-12-30] MEDS: CEFTRIAXONE 2 G in DEXTROSE 5% WATER 50 ML IV SCH (21:15)
[2020-12-30] MEDS: HYDROCODONE/ACETAMINOPHEN 5/325MG TABLET PO PRN (21:26)
[2020-12-31] VITALS: BP 148/89
[2020-12-31 04:00] VITALS: BP 131/91
[2020-12-31] MEDS: BLOOD SUGAR DIAGNOSTIC STRIP TEST SCH ×4 (06:03→21:41)
[2020-12-31] MEDS: HYDRALAZINE HCL 25MG TABLET PO SCH ×3 (06:19→21:41)
[2020-12-31 06:45] LABS: BASOPHILS % 0.8 % (0.0-2.0); EOSINOPHILS % 2.1 % (0.0-5.0); HEMATOCRIT. 44.1 % (42.0-52.0); HEMOGLOBIN. 14.5 g/dL (14.0-18.0); LYMPHOCYTES % 21.7 % (20.0-50.0); MEAN CORPUSCULAR HEMOGLOBIN 28.9 pg (28.0-32.0); MEAN CORPUSCULAR VOLUME 87.8 fL (80.0-94.0); MEAN PLATELET VOLUME 10.6 fl (7.4-10.4); MONOCYTES % 10.3 % (2.0-8.0); NEUTROPHILS % 65.1 % (40.0-76.0); PLATELET 196 x1000/uL (130-400); RED BLOOD CELL COUNT 5.02 mill/uL (4.7-6.1); RED CELL DISTRIBUTION WIDTH 14.9 % (11.6-14.6)
[2020-12-31] MEDS: INSULIN LISPRO 100 UNITS/ML SUBCUT SCH ×4 (07:34→21:00)
[2020-12-31 07:55] LABS: CHLORIDE 109 mEq/L (98-107)
[2020-12-31 08:00] VITALS: BP 142/89
[2020-12-31] MEDS: ASPIRIN 81MG TABLET PO SCH (08:37)
[2020-12-31] MEDS: LISINOPRIL 20MG TABLET PO SCH (08:37)
[2020-12-31] MEDS: AMLODIPINE 5MG TABLET PO SCH (08:37)
[2020-12-31 12:00] VITALS: BP 143/84
[2020-12-31 16:00] VITALS: BP 149/81
[2020-12-31] MEDS: ENOXAPARIN 40MG/0.4ML SYR SUBCUT SCH (17:17)
[2020-12-31] MEDS: HYDROCODONE/ACETAMINOPHEN 5/325MG TABLET PO PRN ×2 (17:17→21:49)
[2020-12-31 20:00] VITALS: BP 149/77
[2020-12-31] MEDS: CEFTRIAXONE 2 G in DEXTROSE 5% WATER 50 ML IV SCH (21:41)
[2021-01-01] VITALS: BP 146/80
[2021-01-01 04:00] VITALS: BP 140/81
[2021-01-01 06:09] LABS: BASOPHILS % 0.7 % (0.0-2.0); EOSINOPHILS % 2.9 % (0.0-5.0); HEMATOCRIT. 43.1 % (42.0-52.0); HEMOGLOBIN. 14.2 g/dL (14.0-18.0); LYMPHOCYTES % 22.2 % (20.0-50.0); MEAN CORPUSCULAR HEMOGLOBIN 29.1 pg (28.0-32.0); MEAN CORPUSCULAR VOLUME 88.3 fL (80.0-94.0); MEAN PLATELET VOLUME 10.9 fl (7.4-10.4); MONOCYTES % 12.9 % (2.0-8.0); NEUTROPHILS % 61.3 % (40.0-76.0); PLATELET 200 x1000/uL (130-400); RED BLOOD CELL COUNT 4.88 mill/uL (4.7-6.1); RED CELL DISTRIBUTION WIDTH 14.7 % (11.6-14.6)
[2021-01-01] MEDS: HYDRALAZINE HCL 25MG TABLET PO SCH ×2 (06:38→15:16)
[2021-01-01] MEDS: BLOOD SUGAR DIAGNOSTIC STRIP TEST SCH ×2 (06:38→11:21)
[2021-01-01 06:43] LABS: CHLORIDE 109 mEq/L (98-107)
[2021-01-01] MEDS: INSULIN LISPRO 100 UNITS/ML SUBCUT SCH ×2 (07:50→11:21)
[2021-01-01 08:00] VITALS: BP 145/95
[2021-01-01] MEDS: HYDROCODONE/ACETAMINOPHEN 5/325MG TABLET PO PRN ×2 (08:33→12:30)
[2021-01-01] MEDS: LISINOPRIL 20MG TABLET PO SCH (08:33)
[2021-01-01] MEDS: AMLODIPINE 5MG TABLET PO SCH (08:33)
[2021-01-01] MEDS: ASPIRIN 81MG TABLET PO SCH (08:33)
[2021-01-01] MEDS ORDERED: LEVO750T46 MT (09:52)
[2021-01-01] MEDS ORDERED: CEFEPIME 2,000 MG in DEXT 5% WATER 100 ML IV SCH (11:00)
[2021-01-01 12:00] VITALS: BP 132/84
[2021-01-01 13:40] VITALS: BP 132/84
== END 2021-01-01 16:30 | DRG 623 ==
LOC: ER 10:07 → 6WST 14:01 → ENRESERV 14:47 → ER 15:10
PROVIDERS: ADMIT Internal Medicine; ATTEND Internal Medicine
PROC: 0JBQ0ZZ Excision of Right Foot Subcutaneous Tissue and Fascia, Open Approach (ICD-10-PCS; principal; 2020-12-31)
DX: E11.621 Type 2 diabetes mellitus with foot ulcer (principal); M86.8X7 Other osteomyelitis, ankle and foot; E11.69 Type 2 diabetes mellitus with other specified complication; I10 Essential (primary) hypertension; I16.0 Hypertensive urgency; J45.909 Unspecified asthma, uncomplicated; F41.9 Anxiety disorder, unspecified; R74.01 Elevation of levels of liver transaminase levels; F14.90 Cocaine use, unspecified, uncomplicated; Z20.822 Contact with and (suspected) exposure to COVID-19; L97.519 Non-pressure chronic ulcer of other part of right foot with unspecified severity; M25.462 Effusion, left knee; M19.071 Primary osteoarthritis, right ankle and foot; M20.12 Hallux valgus (acquired), left foot; M20.11 Hallux valgus (acquired), right foot; Z79.82 Long term (current) use of aspirin; Z79.899 Other long term (current) drug therapy; Z79.2 Long term (current) use of antibiotics; Z79.84 Long term (current) use of oral hypoglycemic drugs
CPT/HCPCS: 36415; 71045; 73620; 80048; 80053; 80305; 82962; 83036; 84145; 85025; 85651; 86140; 87070; 87077; 87186; 87426; 97162; 99285; J0692; J0696; J1650; J1815; J2270; J3370; J3490; J7060

== ENCOUNTER 2021-02-14 00:12 | Emergency (ER) | payer MEDICARE, MEDICAID ==
[~2021-02-14] VITALS: Ht 182.9 cm; Wt 79.4 kg
[~2021-02-14 00:12] MED LIST changes: -CEPH500C2 MT; -IBUP-2029 MT; +LEVO750T46 MT; -SULF1TAB48 MT
[2021-02-14] MEDS ORDERED: SODIUM CHLORIDE 0.9% 1,000 ML IV ONE (00:45)
[2021-02-14] MEDS ORDERED: CEFTRIAXONE 1 G PREMIX 50 ML IV ONE (00:45)
[2021-02-14] MEDS ORDERED: VANCOMYCIN 1 G PREMIX 200 ML IV SCH (00:45)
[2021-02-14 01:09] LABS: BASOPHILS % 0.4 % (0.0-2.0); EOSINOPHILS % 2.1 % (0.0-5.0); HEMATOCRIT. 39.3 % (42.0-52.0); LYMPHOCYTES % 15.6 % (20.0-50.0); MEAN CORPUSCULAR HEMOGLOBIN 28.9 pg (28.0-32.0); MEAN CORPUSCULAR VOLUME 87.3 fL (80.0-94.0); MEAN PLATELET VOLUME 9.8 fl (7.4-10.4); MONOCYTES % 11.1 % (2.0-8.0); NEUTROPHILS % 70.8 % (40.0-76.0); PLATELET 249 x1000/uL (130-400); RED CELL DISTRIBUTION WIDTH 13.5 % (11.6-14.6)
[2021-02-14 01:17] LABS: INR 1.1; PROTHROMBIN TIME 11.3 sec (9.6-11.0)
[2021-02-14 01:22] LABS: CHLORIDE 108 mEq/L (98-107)
[2021-02-14 01:28] LABS: C REACTIVE PROTEIN QUANT 1.9 mg/L (0.0-3.0)
[2021-02-14 07:07] VITALS: BP 166/96
== END 2021-02-14 07:23 | disposition home or self-care (01) ==
LOC: ER 00:12
DX: L97.519 Non-pressure chronic ulcer of other part of right foot with unspecified severity (principal); E11.9 Type 2 diabetes mellitus without complications; I10 Essential (primary) hypertension
CPT/HCPCS: 36415; 73630; 80053; 83605; 84145; 85025; 85610; 86140; 87040; 96365; 96368; 99284; J0696; J3370; J7030

== ENCOUNTER 2021-10-02 07:08 | Emergency (ER) | payer MEDICARE, MEDICAID ==
[~2021-10-02] VITALS: Ht 172.7 cm; Wt 70.0 kg
[2021-10-02] MEDS ORDERED: AMLODIPINE 5MG TABLET PO ONE (08:00)
[2021-10-02 08:07] LABS: EOSINOPHILS % 4.5 % (0.0-5.0); HEMATOCRIT. 38.5 % (42.0-52.0); HEMOGLOBIN. 12.8 g/dL (14.0-18.0); LYMPHOCYTES % 12.1 % (20.0-50.0); MEAN CORPUSCULAR HEMOGLOBIN 28.7 pg (28.0-32.0); MEAN CORPUSCULAR VOLUME 86.5 fL (80.0-94.0); MONOCYTES % 12.9 % (2.0-8.0); NEUTROPHILS % 69.5 % (40.0-76.0); PLATELET 231 x1000/uL (130-400); RED BLOOD CELL COUNT 4.45 mill/uL (4.7-6.1); RED CELL DISTRIBUTION WIDTH 13.1 % (11.6-14.6)
[2021-10-02 08:10] LABS: CHLORIDE 107 mEq/L (98-107)
[2021-10-02 12:00] VITALS: BP 182/92
== END 2021-10-02 12:54 | disposition home or self-care (01) ==
LOC: ER 08:04
DX: S91.332A Puncture wound without foreign body, left foot, initial encounter (principal); S91.331A Puncture wound without foreign body, right foot, initial encounter; I10 Essential (primary) hypertension; X95.9XXA Assault by unspecified firearm discharge, initial encounter; Y93.89 Activity, other specified; Y92.89 Other specified places as the place of occurrence of the external cause
CPT/HCPCS: 36415; 73620; 80053; 85025; 99284

== ENCOUNTER 2021-10-16 04:59 | Emergency (ER) | payer MEDICARE, MEDICAID ==
[~2021-10-16] VITALS: Ht 170.2 cm; Wt 82.0 kg
[2021-10-16 05:01] VITALS: BP 142/88
== END 2021-10-16 06:13 | disposition home or self-care (01) ==
LOC: ER 05:33
DX: Z48.00 Encounter for change or removal of nonsurgical wound dressing (principal); M79.672 Pain in left foot; M79.671 Pain in right foot; R26.2 Difficulty in walking, not elsewhere classified
CPT/HCPCS: 99283

== ENCOUNTER 2022-06-16 10:10 | Inpatient (IN) | payer MEDICARE, MEDICAID ==
[~2022-06-16] VITALS: Ht 182.9 cm; Wt 80.7 kg
[~2022-06-16 10:10] MED LIST changes: -LEVO750T46 MT; +LEVO750T68 MT
[2022-06-16 12:53] LABS: CHLORIDE 109 mEq/L (98-107)
[2022-06-16 12:54] LABS: BASOPHILS % 0.6 % (0.0-2.0); EOSINOPHILS % 1.2 % (0.0-5.0); HEMATOCRIT. 40.4 % (42.0-52.0); HEMOGLOBIN. 12.5 g/dL (14.0-18.0); LYMPHOCYTES % 12.8 % (20.0-50.0); MEAN CORPUSCULAR HEMOGLOBIN 28.5 pg (28.0-32.0); MEAN CORPUSCULAR VOLUME 92.4 fL (80.0-94.0); MEAN PLATELET VOLUME 10.1 fl (7.4-10.4); MONOCYTES % 8.4 % (2.0-8.0); PLATELET 155 x1000/uL (130-400); RED BLOOD CELL COUNT 4.37 mill/uL (4.7-6.1)
[2022-06-16] MEDS ORDERED: PIPERACILLIN/TAZOBACTAM 3.375GM/50ML PREMIX IV NR (13:00)
[2022-06-16] MEDS ORDERED: VANCOMYCIN 1.25GM PMX (XELLIA) 250 ML IV SCH (13:00)
[2022-06-16] MEDS ORDERED: HYDROCODONE/ACETAMINOPHEN 5/325MG TABLET PO PRN (18:45)
[2022-06-16] MEDS: HYDROCODONE/ACETAMINOPHEN 10/325MG TABLET PO PRN (19:10)
[2022-06-16] MEDS ORDERED: LORAZEPAM 0.5MG TABLET PO PRN (19:30)
[2022-06-16] MEDS ORDERED: IPRATROPIUM/ALBUTEROL 0.5-3(2.5)MG/3ML NEB HHN PRN (19:30)
[2022-06-16] MEDS ORDERED: ONDANSETRON HCL 4MG/2ML INJ IV PRN (19:30)
[2022-06-16] MEDS ORDERED: DOCUSATE SODIUM 100MG CAPSULE PO PRN (19:30)
[2022-06-16] MEDS ORDERED: ACETAMINOPHEN 325MG TABLET PO PRN ×2 (19:30)
[2022-06-16] MEDS ORDERED: ALBUTEROL (0.083%) 2.5MG/3ML NEB HHN PRN (19:45)
[2022-06-16] MEDS ORDERED: IPRATROPIUM BROMIDE (0.02%) 0.5MG/2.5ML NEB HHN PRN (19:45)
[2022-06-16] MEDS ORDERED: NALOXONE HCL 0.4MG/ML VIAL IV PRN (19:45)
[2022-06-16 20:00] VITALS: BP 192/99
[2022-06-16] MEDS: ATORVASTATIN CALCIUM 40MG TABLET PO SCH (20:28)
[2022-06-16] MEDS: AMLODIPINE 5MG TABLET PO SCH (20:28)
[2022-06-16] MEDS: VANCOMYCIN 750MG PREMIX 150 ML IV SCH (21:31)
[2022-06-16] MEDS: HYDRALAZINE HCL 50MG TABLET PO SCH (21:50)
[2022-06-16] MEDS: PIPERACILLIN/TAZOBACTAM 3.375 G in DEXTROSE 5% WATER 50 ML IV SCH (22:00)
[2022-06-17] VITALS: BP 187/87
[2022-06-17] MEDS: CLONIDINE 0.1MG TABLET PO PRN ×2 (00:38→12:27)
[2022-06-17] MEDS: MORPHINE SULFATE 2 MG/ML CPJ (NOT FOR IM USE) IV PRN ×3 (00:44→20:24)
[2022-06-17 04:00] VITALS: BP 173/89
[2022-06-17] MEDS: VANCOMYCIN 750MG PREMIX 150 ML IV SCH (05:20)
[2022-06-17] MEDS: PIPERACILLIN/TAZOBACTAM 3.375 G in DEXTROSE 5% WATER 50 ML IV SCH ×3 (06:00→22:17)
[2022-06-17] MEDS: HYDRALAZINE HCL 50MG TABLET PO SCH ×3 (06:33→22:20)
[2022-06-17 07:04] LABS: BASOPHILS % 0.7 % (0.0-2.0); EOSINOPHILS % 2.5 % (0.0-5.0); HEMATOCRIT. 37.5 % (42.0-52.0); HEMOGLOBIN. 12.3 g/dL (14.0-18.0); MEAN CORPUSCULAR HEMOGLOBIN 28.6 pg (28.0-32.0); MEAN CORPUSCULAR VOLUME 87.5 fL (80.0-94.0); MEAN PLATELET VOLUME 10.5 fl (7.4-10.4); MONOCYTES % 10.8 % (2.0-8.0); PLATELET 235 x1000/uL (130-400); RED BLOOD CELL COUNT 4.29 mill/uL (4.7-6.1); RED CELL DISTRIBUTION WIDTH 13.9 % (11.6-14.6)
[2022-06-17] MEDS: AMLODIPINE 5MG TABLET PO SCH ×2 (07:20→17:37)
[2022-06-17 07:57] VITALS: BP 154/87
[2022-06-17] MEDS: LISINOPRIL 20MG TABLET PO SCH (07:59)
[2022-06-17 08:04] LABS: CHLORIDE 108 mEq/L (98-107)
[2022-06-17] MEDS: ASPIRIN 81MG TABLET PO SCH (09:00)
[2022-06-17] MEDS ORDERED: LISINOPRIL 20MG TABLET PO SCH (09:00)
[2022-06-17] MEDS ORDERED: POLYMYXIN B SULFATE 500000 UNITS/VIAL ONE (11:59)
[2022-06-17 12:00] VITALS: BP 161/88
[2022-06-17] MEDS ORDERED: VANCOMYCIN HCL 1 GM/VIAL ONE (12:00)
[2022-06-17] MEDS ORDERED: BUPIVACAINE HCL/PF 0.5% (5MG/ML) 10ML ONE (12:00)
[2022-06-17] MEDS ORDERED: BACITRACIN 15GM TUBE TOP ONE (12:00)
[2022-06-17] MEDS ORDERED: GENTAMICIN SULF 40MG/ML 2ML VIAL ONE (12:00)
[2022-06-17] MEDS ORDERED: LIDOCAINE HCL 1% 10 MG/ML 10ML VIAL ONE (12:00)
[2022-06-17] MEDS ORDERED: MIDAZOLAM HCL 2 MG/2 ML VIAL ONE (13:18)
[2022-06-17] MEDS ORDERED: PROPOFOL 200MG/20ML VIAL IV ONE (13:18)
[2022-06-17] MEDS ORDERED: FENTANYL CITRATE/PF 50MCG/ML 2ML VIAL ONE (13:18)
[2022-06-17] MEDS ORDERED: GLYCOPYRROLATE 0.2 MG/ML 2ML VIAL ONE (14:21)
[2022-06-17] MEDS ORDERED: EPHEDRINE SULFATE 50MG/ML VIAL ONE (14:33)
[2022-06-17] MEDS ORDERED: MORPHINE SULFATE 2 MG/ML CPJ (NOT FOR IM USE) IV PRN (15:30)
[2022-06-17] MEDS ORDERED: FENTANYL CITRATE/PF 50MCG/ML 2ML VIAL IV PRN (15:30)
[2022-06-17 16:27] LABS: TOTAL IRON BINDING CAPACITY 356 ug/dL (250-450)
[2022-06-17 16:31] VITALS: BP 118/75
[2022-06-17 16:53] LABS: FOLIC ACID (FOLATE) SERUM 7.7 ng/mL (>5.38)
[2022-06-17 20:00] VITALS: BP 123/72
[2022-06-17] MEDS: VANCOMYCIN 1G PREMIX 200 ML IV SCH (20:22)
[2022-06-17] MEDS: ATORVASTATIN CALCIUM 40MG TABLET PO SCH (20:22)
[2022-06-18] VITALS: BP 132/78
[2022-06-18 04:00] VITALS: BP 158/77
[2022-06-18] MEDS: HYDRALAZINE HCL 50MG TABLET PO SCH ×3 (05:15→22:27)
[2022-06-18] MEDS: PIPERACILLIN/TAZOBACTAM 3.375 G in DEXTROSE 5% WATER 50 ML IV SCH ×3 (05:15→22:31)
[2022-06-18 06:29] LABS: BASOPHILS % 0.7 % (0.0-2.0); EOSINOPHILS % 1.3 % (0.0-5.0); HEMATOCRIT. 35.7 % (42.0-52.0); HEMOGLOBIN. 11.9 g/dL (14.0-18.0); LYMPHOCYTES % 12.1 % (20.0-50.0); MEAN CORPUSCULAR HEMOGLOBIN 29.1 pg (28.0-32.0); MEAN CORPUSCULAR VOLUME 87.3 fL (80.0-94.0); MEAN PLATELET VOLUME 10.5 fl (7.4-10.4); NEUTROPHILS % 78.9 % (40.0-76.0); PLATELET 216 x1000/uL (130-400); RED BLOOD CELL COUNT 4.09 mill/uL (4.7-6.1); RED CELL DISTRIBUTION WIDTH 13.7 % (11.6-14.6)
[2022-06-18 06:36] LABS: CHLORIDE 105 mEq/L (98-107)
[2022-06-18 08:00] VITALS: BP 146/79
[2022-06-18] MEDS: ASPIRIN 81MG TABLET PO SCH (09:43)
[2022-06-18] MEDS: AMLODIPINE 5MG TABLET PO SCH ×2 (09:44→17:08)
[2022-06-18] MEDS: LISINOPRIL 20MG TABLET PO SCH (09:44)
[2022-06-18] MEDS: VANCOMYCIN 1G PREMIX 200 ML IV SCH ×2 (09:52→20:17)
[2022-06-18] MEDS: HYDROCODONE/ACETAMINOPHEN 10/325MG TABLET PO PRN ×2 (11:43→20:50)
[2022-06-18 11:54] VITALS: BP 165/87
[2022-06-18 16:00] VITALS: BP 145/78
[2022-06-18 20:00] VITALS: BP 165/85
[2022-06-18] MEDS: ATORVASTATIN CALCIUM 40MG TABLET PO SCH (20:17)
[2022-06-19] VITALS: BP 144/75
[2022-06-19 04:00] VITALS: BP 138/81
[2022-06-19] MEDS: HYDRALAZINE HCL 50MG TABLET PO SCH ×3 (06:33→22:32)
[2022-06-19] MEDS: PIPERACILLIN/TAZOBACTAM 3.375 G in DEXTROSE 5% WATER 50 ML IV SCH ×3 (06:33→22:00)
[2022-06-19 07:18] LABS: HEMATOCRIT. 38.4 % (42.0-52.0); HEMOGLOBIN. 12.6 g/dL (14.0-18.0); MEAN CORPUSCULAR HEMOGLOBIN 28.7 pg (28.0-32.0); MEAN CORPUSCULAR VOLUME 87.4 fL (80.0-94.0); MEAN PLATELET VOLUME 10.4 fl (7.4-10.4); PLATELET 203 x1000/uL (130-400); RED BLOOD CELL COUNT 4.39 mill/uL (4.7-6.1); RED CELL DISTRIBUTION WIDTH 13.7 % (11.6-14.6)
[2022-06-19 07:40] LABS: CHLORIDE 107 mEq/L (98-107)
[2022-06-19 08:00] VITALS: BP 150/81
[2022-06-19] MEDS: LISINOPRIL 20MG TABLET PO SCH (08:45)
[2022-06-19] MEDS: VANCOMYCIN 1G PREMIX 200 ML IV SCH ×2 (08:45→20:38)
[2022-06-19] MEDS: ASPIRIN 81MG TABLET PO SCH (08:45)
[2022-06-19] MEDS: AMLODIPINE 5MG TABLET PO SCH ×2 (08:45→16:37)
[2022-06-19 12:00] VITALS: BP 144/70
[2022-06-19 13:45] LABS: PLATELET ESTIMATE NORMAL
[2022-06-19 16:00] VITALS: BP 157/78
[2022-06-19] MEDS: ATORVASTATIN CALCIUM 40MG TABLET PO SCH (20:39)
[2022-06-20] MEDS: HYDRALAZINE HCL 50MG TABLET PO SCH ×3 (05:53→21:21)
[2022-06-20] MEDS: PIPERACILLIN/TAZOBACTAM 3.375 G in DEXTROSE 5% WATER 50 ML IV SCH ×3 (05:53→21:21)
[2022-06-20] MEDS: HYDROCODONE/ACETAMINOPHEN 10/325MG TABLET PO PRN (06:23)
[2022-06-20 07:56] LABS: BASOPHILS % 0.9 % (0.0-2.0); EOSINOPHILS % 2.6 % (0.0-5.0); HEMATOCRIT. 37.9 % (42.0-52.0); HEMOGLOBIN. 12.1 g/dL (14.0-18.0); LYMPHOCYTES % 16.1 % (20.0-50.0); MEAN CORPUSCULAR HEMOGLOBIN 28.1 pg (28.0-32.0); MEAN CORPUSCULAR VOLUME 87.9 fL (80.0-94.0); MEAN PLATELET VOLUME 10.4 fl (7.4-10.4); MONOCYTES % 14.8 % (2.0-8.0); NEUTROPHILS % 65.6 % (40.0-76.0); PLATELET 230 x1000/uL (130-400); RED BLOOD CELL COUNT 4.32 mill/uL (4.7-6.1); RED CELL DISTRIBUTION WIDTH 13.4 % (11.6-14.6)
[2022-06-20 08:00] VITALS: BP 146/96
[2022-06-20 08:43] LABS: CHLORIDE 107 mEq/L (98-107)
[2022-06-20] MEDS: ASPIRIN 81MG TABLET PO SCH (09:08)
[2022-06-20] MEDS: VANCOMYCIN 1G PREMIX 200 ML IV SCH ×2 (09:08→20:56)
[2022-06-20] MEDS: AMLODIPINE 5MG TABLET PO SCH ×2 (09:08→16:56)
[2022-06-20] MEDS: LISINOPRIL 20MG TABLET PO SCH (09:08)
[2022-06-20 12:00] VITALS: BP 157/92
[2022-06-20 16:00] VITALS: BP 148/90
[2022-06-20 20:00] VITALS: BP 158/85
[2022-06-20] MEDS: ATORVASTATIN CALCIUM 40MG TABLET PO SCH (20:57)
[2022-06-21] VITALS: BP 165/89
[2022-06-21] MEDS: HYDROCODONE/ACETAMINOPHEN 10/325MG TABLET PO PRN ×2 (01:17→12:24)
[2022-06-21 04:00] VITALS: BP 125/75
[2022-06-21] MEDS: PIPERACILLIN/TAZOBACTAM 3.375 G in DEXTROSE 5% WATER 50 ML IV SCH ×3 (05:28→21:44)
[2022-06-21] MEDS: HYDRALAZINE HCL 50MG TABLET PO SCH ×3 (05:28→21:47)
[2022-06-21 08:00] VITALS: BP 140/83
[2022-06-21] MEDS: VANCOMYCIN 1G PREMIX 200 ML IV SCH (09:22)
[2022-06-21] MEDS: LISINOPRIL 20MG TABLET PO SCH (09:31)
[2022-06-21] MEDS: ASPIRIN 81MG TABLET PO SCH (09:31)
[2022-06-21] MEDS: AMLODIPINE 5MG TABLET PO SCH ×2 (09:31→18:02)
[2022-06-21 12:00] VITALS: BP 144/96
[2022-06-21 16:00] VITALS: BP 140/83
[2022-06-21 20:00] VITALS: BP 149/79
[2022-06-21] MEDS: ATORVASTATIN CALCIUM 40MG TABLET PO SCH (21:43)
[2022-06-22] VITALS: BP 150/71
[2022-06-22 04:00] VITALS: BP 145/67
[2022-06-22] MEDS: HYDRALAZINE HCL 50MG TABLET PO SCH ×3 (05:58→20:39)
[2022-06-22] MEDS: HYDROCODONE/ACETAMINOPHEN 10/325MG TABLET PO PRN ×2 (05:59→20:40)
[2022-06-22] MEDS: PIPERACILLIN/TAZOBACTAM 3.375 G in DEXTROSE 5% WATER 50 ML IV SCH ×3 (05:59→20:38)
[2022-06-22 07:25] LABS: BASOPHILS % 1.1 % (0.0-2.0); EOSINOPHILS % 5.3 % (0.0-5.0); HEMOGLOBIN. 13.1 g/dL (14.0-18.0); LYMPHOCYTES % 24.1 % (20.0-50.0); MEAN CORPUSCULAR HEMOGLOBIN 28.6 pg (28.0-32.0); MEAN CORPUSCULAR VOLUME 89.2 fL (80.0-94.0); MEAN PLATELET VOLUME 11.4 fl (7.4-10.4); MONOCYTES % 13.6 % (2.0-8.0); NEUTROPHILS % 55.9 % (40.0-76.0); PLATELET 170 x1000/uL (130-400); RED CELL DISTRIBUTION WIDTH 13.8 % (11.6-14.6)
[2022-06-22 07:38] LABS: CHLORIDE 111 mEq/L (98-107)
[2022-06-22 08:00] VITALS: BP 136/78
[2022-06-22] MEDS: LISINOPRIL 20MG TABLET PO SCH (08:16)
[2022-06-22] MEDS: ASPIRIN 81MG TABLET PO SCH (08:16)
[2022-06-22] MEDS: AMLODIPINE 5MG TABLET PO SCH ×2 (08:16→16:00)
[2022-06-22 12:00] VITALS: BP 130/79
[2022-06-22 16:00] VITALS: BP 144/76
[2022-06-22 20:00] VITALS: BP 165/83
[2022-06-22] MEDS: ATORVASTATIN CALCIUM 40MG TABLET PO SCH (20:39)
[2022-06-22] MEDS ORDERED: NALOXONE HCL 0.4MG/ML VIAL IV PRN (21:00)
[2022-06-23] VITALS: BP 162/81
[2022-06-23] MEDS: CLONIDINE 0.1MG TABLET PO PRN (00:22)
[2022-06-23 04:00] VITALS: BP 125/80
[2022-06-23] MEDS: PIPERACILLIN/TAZOBACTAM 3.375 G in DEXTROSE 5% WATER 50 ML IV SCH ×3 (05:48→22:29)
[2022-06-23] MEDS: HYDRALAZINE HCL 50MG TABLET PO SCH ×3 (05:49→22:30)
[2022-06-23 06:50] LABS: BASOPHILS % 2.5 % (0.0-2.0); EOSINOPHILS % 5.4 % (0.0-5.0); HEMOGLOBIN. 12.3 g/dL (14.0-18.0); LYMPHOCYTES % 25.5 % (20.0-50.0); MEAN CORPUSCULAR HEMOGLOBIN 28.9 pg (28.0-32.0); MEAN CORPUSCULAR VOLUME 87.3 fL (80.0-94.0); MEAN PLATELET VOLUME 11.5 fl (7.4-10.4); MONOCYTES % 11.4 % (2.0-8.0); NEUTROPHILS % 55.2 % (40.0-76.0); PLATELET 193 x1000/uL (130-400); RED BLOOD CELL COUNT 4.24 mill/uL (4.7-6.1); RED CELL DISTRIBUTION WIDTH 13.2 % (11.6-14.6)
[2022-06-23 07:48] LABS: CHLORIDE 107 mEq/L (98-107)
[2022-06-23 08:00] VITALS: BP 132/79
[2022-06-23] MEDS: LISINOPRIL 20MG TABLET PO SCH (09:00)
[2022-06-23] MEDS: AMLODIPINE 5MG TABLET PO SCH ×2 (09:00→17:00)
[2022-06-23] MEDS: ASPIRIN 81MG TABLET PO SCH (09:00)
[2022-06-23] MEDS ORDERED: MORPHINE SULFATE 2 MG/ML CPJ (NOT FOR IM USE) IV ONE (09:00)
[2022-06-23 12:15] VITALS: BP 144/60
[2022-06-23 16:00] VITALS: BP 153/71
[2022-06-23] MEDS ORDERED: AMLO5TAB88 PO (17:10)
[2022-06-23 20:00] VITALS: BP 141/82
[2022-06-23] MEDS: ATORVASTATIN CALCIUM 40MG TABLET PO SCH (21:25)
[2022-06-23] MEDS: HYDROCODONE/ACETAMINOPHEN 10/325MG TABLET PO PRN (21:45)
[2022-06-24] VITALS (7 sets, daily range): BP systolic 134–159; BP diastolic 78–87
[2022-06-24] MEDS: HYDRALAZINE HCL 50MG TABLET PO SCH ×2 (05:16→15:58)
[2022-06-24] MEDS: PIPERACILLIN/TAZOBACTAM 3.375 G in DEXTROSE 5% WATER 50 ML IV SCH ×2 (05:16→16:00)
[2022-06-24 06:10] LABS: HIV SCREEN 4G Non Reactive (Non Reactive)
[2022-06-24] MEDS ORDERED: LIDOCAINE HCL 1% 10 MG/ML 10ML VIAL ONE (07:27)
[2022-06-24] MEDS: LISINOPRIL 20MG TABLET PO SCH (11:13)
[2022-06-24] MEDS: AMLODIPINE 5MG TABLET PO SCH ×2 (11:13→15:58)
[2022-06-24] MEDS: ASPIRIN 81MG TABLET PO SCH (11:13)
[2022-06-24] MEDS: HYDROCODONE/ACETAMINOPHEN 10/325MG TABLET PO PRN ×2 (11:15→17:07)
== END 2022-06-24 18:19 | DRG 629 ==
LOC: ER 11:12 → 6EST 13:45 → EDBEDREQTM 13:49 → EDBEDREQ 13:49 → ENRESERV 14:34 → ER 15:30 → 6EST 06-21
PROVIDERS: ADMIT Family Medicine Adult Medicine; ATTEND Family Medicine Adult Medicine
PROC: 0QBN0ZZ Excision of Right Metatarsal, Open Approach (ICD-10-PCS; principal; 2022-06-17)
PROC: 02HV33Z Insertion of Infusion Device into Superior Vena Cava, Percutaneous Approach (ICD-10-PCS; 2022-06-24)
PROC: B5181ZA Fluoroscopy of Superior Vena Cava using Low Osmolar Contrast, Guidance (ICD-10-PCS; 2022-06-24)
PROC: B548ZZA Ultrasonography of Superior Vena Cava, Guidance (ICD-10-PCS; 2022-06-24)
DX: E11.621 Type 2 diabetes mellitus with foot ulcer (principal); L03.115 Cellulitis of right lower limb; M86.8X7 Other osteomyelitis, ankle and foot; J45.909 Unspecified asthma, uncomplicated; D64.9 Anemia, unspecified; E11.628 Type 2 diabetes mellitus with other skin complications; I16.0 Hypertensive urgency; D72.821 Monocytosis (symptomatic); Z20.822 Contact with and (suspected) exposure to COVID-19; F41.9 Anxiety disorder, unspecified; I10 Essential (primary) hypertension; F32.A Depression, unspecified; E11.69 Type 2 diabetes mellitus with other specified complication; E11.51 Type 2 diabetes mellitus with diabetic peripheral angiopathy without gangrene; L97.519 Non-pressure chronic ulcer of other part of right foot with unspecified severity; F17.210 Nicotine dependence, cigarettes, uncomplicated; Z79.82 Long term (current) use of aspirin; Z79.84 Long term (current) use of oral hypoglycemic drugs; Z79.899 Other long term (current) drug therapy; Z89.429 Acquired absence of other toe(s), unspecified side
CPT/HCPCS: 36415; 36573; 73630; 73721; 80048; 80053; 80202; 82607; 82728; 82746; 82962; 83036; 83540; 83550; 85025; 86592; 86850; 86870; 86900; 87070; 87075; 87077; 87186; 87389; 87426; 87491; 93005; 93923; 97022; 97116; 97162; 99285; C1725; C1769; C1893; J1580; J2250; J2270; J2543; J2704; J3010; J3370; J3490; J7060

== ENCOUNTER 2022-10-16 12:45 | Emergency (ER) | payer MEDICARE, MEDICAID ==
[~2022-10-16] VITALS: Ht 182.9 cm; Wt 90.0 kg
[~2022-10-16 12:45] MED LIST changes: -LEVO750T68 MT
[2022-10-16 13:54] VITALS: O2SAT 99
[2022-10-16] MEDS ORDERED: CEPHALEXIN 250MG CAPSULE PO ONE (19:00)
[2022-10-16] MEDS ORDERED: HYDROCODONE/ACETAMINOPHEN 5/325MG TABLET PO NR (20:30)
[2022-10-16] MEDS ORDERED: SULFAMETHOXAZOLE/TRIMETHOPRIM 400/80MG TAB PO NR (20:30)
[2022-10-16 20:44] LABS: BASOPHILS % 0.6 % (0.0-2.0); EOSINOPHILS % 2.6 % (0.0-5.0); HEMATOCRIT. 39.1 % (42.0-52.0); LYMPHOCYTES % 13.8 % (20.0-50.0); MEAN CORPUSCULAR HEMOGLOBIN 28.8 pg (28.0-32.0); MEAN CORPUSCULAR VOLUME 86.4 fL (80.0-94.0); MEAN PLATELET VOLUME 9.8 fl (7.4-10.4); MONOCYTES % 12.2 % (2.0-8.0); NEUTROPHILS % 70.8 % (40.0-76.0); PLATELET 234 x1000/uL (130-400); RED BLOOD CELL COUNT 4.52 mill/uL (4.7-6.1); RED CELL DISTRIBUTION WIDTH 14.1 % (11.6-14.6)
[2022-10-16 20:48] LABS: CHLORIDE 112 mEq/L (98-107)
[2022-10-16 21:14] VITALS: BP 215/102
[2022-10-16] MEDS ORDERED: AMLODIPINE 5MG TABLET PO NR (22:30)
[2022-10-16] MEDS ORDERED: LISINOPRIL 10MG TABLET PO NR (22:30)
[2022-10-17 03:24] VITALS: PULSE 77; RESP 20; TEMP 98.2
== END 2022-10-17 03:25 | disposition home or self-care (01) ==
LOC: ER 12:45
DX: M79.89 Other specified soft tissue disorders (principal); F41.9 Anxiety disorder, unspecified; F32.9 Major depressive disorder, single episode, unspecified; J45.909 Unspecified asthma, uncomplicated; I10 Essential (primary) hypertension
CPT/HCPCS: 36415; 73630; 73700; 80053; 85025; 93971; 99285

== ENCOUNTER 2023-07-09 05:35 | Emergency (ER) | payer MEDICARE, MEDICAID ==
[~2023-07-09] VITALS: Ht 182.9 cm; Wt 76.0 kg
[~2023-07-09 05:35] MED LIST changes: -HYDR-4135 PO; +HYDR50TA39 PO
[2023-07-09 05:40] VITALS: BP 162/86; PULSE 90; RESP 18; TEMP 98.3; O2SAT 100
[2023-07-09] MEDS ORDERED: MUPI1OIN4 TP (07:34)
== END 2023-07-09 07:55 | disposition home or self-care (01) ==
LOC: ER 05:35
DX: M79.671 Pain in right foot (principal); I10 Essential (primary) hypertension; E11.9 Type 2 diabetes mellitus without complications; Z98.890 Other specified postprocedural states; Z79.82 Long term (current) use of aspirin
CPT/HCPCS: 99283

== ENCOUNTER 2024-09-14 19:28 | Emergency (ER) | payer MEDICAID, MEDICARE, OTHER ==
[~2024-09-14] VITALS: Ht 182.9 cm; Wt 86.0 kg
[~2024-09-14 19:28] MED LIST changes: +MUPI1OIN4 TP
[2024-09-14 19:37] VITALS: BP 145/62; PULSE 88; RESP 18; TEMP 36.6; O2SAT 100
[2024-09-14 20:56] LABS: BASOPHILS % 0.6 % (0.0-2.0); EOSINOPHILS % 1.4 % (0.0-5.0); HEMATOCRIT. 38.2 % (42.0-52.0); HEMOGLOBIN. 12.6 g/dL (14.0-18.0); LYMPHOCYTES % 13.3 % (20.0-50.0); MEAN CORPUSCULAR VOLUME 87.8 fL (80.0-94.0); MEAN PLATELET VOLUME 9.8 fl (7.4-10.4); MONOCYTES % 8.5 % (2.0-8.0); NEUTROPHILS % 76.2 % (40.0-76.0); PLATELET 280 x1000/uL (130-400); RED BLOOD CELL COUNT 4.35 mill/uL (4.7-6.1); RED CELL DISTRIBUTION WIDTH 13.3 % (11.6-14.6); WHITE BLOOD COUNT 6.2 x1000/uL (4.5-11.0)
[2024-09-14 21:06] LABS: CHLORIDE 105 mEq/L (98-107); POTASSIUM 3.6 mEq/L (3.5-5.1); SODIUM 139 mEq/L (136-145)
[2024-09-14 21:07] LABS: CARBON DIOXIDE 20 mEq/L (21-32)
[2024-09-14 21:08] LABS: CALCIUM 8.9 mg/dL (8.7-10.4)
[2024-09-14 21:12] LABS: CREATININE 1.3 mg/dL (0.6-1.3); GLUCOSE 82 mg/dL (70-105); UREA NITROGEN BLOOD 10 mg/dL (9-23)
[2024-09-14] MEDS ORDERED: BACI1OIN7 TP (21:14)
== END 2024-09-14 21:30 ==
LOC: ER 19:28
DX: L97.519 Non-pressure chronic ulcer of other part of right foot with unspecified severity (principal); E11.621 Type 2 diabetes mellitus with foot ulcer; I10 Essential (primary) hypertension; F31.9 Bipolar disorder, unspecified; E78.5 Hyperlipidemia, unspecified; Z79.899 Other long term (current) drug therapy; Z79.82 Long term (current) use of aspirin; Z98.890 Other specified postprocedural states
CPT/HCPCS: 36415; 73630; 80048; 85025; 99284